=== PATIENT | female | born 1955 | race Caucasian/White ===

== ENCOUNTER 2019-01-16 19:01 | Inpatient (IN) ==
[2019-01-16] MEDS ORDERED: SODIUM CHLORIDE 0.9% 1,000 ML IV STA (21:33)
[2019-01-16] MEDS ORDERED: LEVOFLOXACIN INJ 750 MG in PREMIX 1 EACH IV STA (21:33)
[2019-01-16] MEDS ORDERED: KETOROLAC 30 MG/1 ML VIAL IV STA (21:33)
[2019-01-16] MEDS ORDERED: ONDANSETRON 4 MG/2 ML VIAL IV STA (21:33)
[2019-01-16 22:07] LABS: Basophils % 0.3 % (0.0-0.8); Eosinophils % 0.1 % (0.00-10.9); Hematocrit 40.8 VOL% (35.7-47.0); Hemoglobin 13.5 GM/DL (12.0-16.0); Immature Granulocytes % 0.6 %; Immature Granulocytes Absolute 0.06 #; Lymphocytes # 0.9 10*3/uL (1.4-4.0); Lymphocytes % 8.1 % (21.3-54.2); Mean Corpuscular HGB Conc 33.1 GM/DL (32-36); Mean Corpuscular Volume 92.3 FL (87-102); Mean Platelet Volume 9.5 FL (9.6-12.0); Monocytes % 5.7 % (1.7-12.7); Neutrophils % 85.2 % (38.7-73.9); Platelet Count 241 T/CUMM (130-400); Red Blood Count 4.42 MC/CUMM (3.8-5.5); Red Cell Distribution Width 13.4 % (9.3-17.3); White Blood Count 10.5 T/CUMM (4-12)
[2019-01-16 22:22] LABS: Albumin 3.7 G/DL (3.4-5.0); Bilirubin,Total 0.7 MG/DL (0.2-1.0); Calcium 8.9 MG/DL (8.5-10.1); Osmolality,Calculated 279.3 MOS/KG (273-304); Total Protein 7.9 G/DL (6.4-8.3)
[2019-01-16 22:23] LABS: Apearance,Urine CLOUDY (Clear); Bacteria,Urine Many /HPF (Few); Bilirubin,Urine Negative (Negative); Blood, Urine Large mg/dL (Negative); Glucose,Urine (UA) Negative (Negative); Hyaline Casts,Urine 23 /LPF (0-3); Ketones,Urine 80 mg/dL (Negative); Mucus,Urine Occasional /LPF (Occasional); Nitrite,Urine Positive (Negative); Protein,Urine 100 MG/DL; RBC,Urine 230 /HPF (0-4); Urine Color Yellow (Yellow); Urine Specific Gravity 1.013 (1.001-1.035); Urine Urobilinogen < 2.0 EU/DL (0.2-1.0); WBC,Urine 2274 /HPF (0-6)
[2019-01-17] MEDS ORDERED: SODIUM CHLORIDE 0.9% 1,000 ML IV STA (00:08)
[2019-01-17] MEDS ORDERED: MORPHINE 4 MG/1 ML VIAL IV PRN (01:22)
[2019-01-17] MEDS ORDERED: ONDANSETRON 4 MG/2 ML VIAL IV PRN (01:22)
[2019-01-17] MEDS ORDERED: LEVOFLOXACIN INJ 750 MG in PREMIX 1 EACH IV SCH ×2 (01:30→23:00)
[2019-01-17] MEDS: SODIUM CHLORIDE 0.9% 1,000 ML IV SCH ×3 (02:54→21:45)
[2019-01-17 05:03] LABS: Basophils % 0.4 % (0.0-0.8); Eosinophils % 0.6 % (0.00-10.9); Hematocrit 33.6 VOL% (35.7-47.0); Immature Granulocytes % 0.3 %; Immature Granulocytes Absolute 0.02 #; Lymphocytes # 1.4 10*3/uL (1.4-4.0); Lymphocytes % 20.6 % (21.3-54.2); Mean Corpuscular HGB Conc 32.7 GM/DL (32-36); Mean Corpuscular Volume 93.3 FL (87-102); Mean Platelet Volume 10.1 FL (9.6-12.0); Monocytes % 8.5 % (1.7-12.7); Neutrophils % 69.6 % (38.7-73.9); Platelet Count 198 T/CUMM (130-400); Red Cell Distribution Width 13.5 % (9.3-17.3); White Blood Count 6.7 T/CUMM (4-12)
[2019-01-17 06:02] LABS: Calcium 8.2 MG/DL (8.5-10.1); Osmolality,Calculated 285.7 MOS/KG (273-304)
[2019-01-17] MEDS: PANTOPRAZOLE 40 MG TABLET PO SCH (09:11)
[2019-01-17] MEDS: ENOXAPARIN 40 MG/0.4 ML SYRINGE SUBCUT SCH (09:11)
[2019-01-17] MEDS: MEROPENEM 1,000 MG in SODIUM CHLORIDE 0.9% 100 ML IV SCH ×2 (12:01→21:46)
[2019-01-17] MEDS: PHENAZOPYRIDINE 95 MG TABLET PO SCH ×2 (12:02→18:34)
[2019-01-18] MEDS: MEROPENEM 1,000 MG in SODIUM CHLORIDE 0.9% 100 ML IV SCH (05:05)
[2019-01-18] MEDS: SODIUM CHLORIDE 0.9% 1,000 ML IV SCH ×2 (06:19→11:15)
[2019-01-18 07:25] VITALS: BP 110/53
[2019-01-18] MEDS: ENOXAPARIN 40 MG/0.4 ML SYRINGE SUBCUT SCH (09:09)
[2019-01-18] MEDS: PANTOPRAZOLE 40 MG TABLET PO SCH (09:10)
[2019-01-18] MEDS: PHENAZOPYRIDINE 95 MG TABLET PO SCH (09:10)
== END 2019-01-18 11:50 | disposition home or self-care (01) | DRG 690 ==
LOC: N.ED 19:01 → N.EDINP 01-17 01:22 → N.5E 01-17 01:49
PROVIDERS: ADMIT Hospitalist; ATTEND Hospitalist